=== PATIENT | male | born 1960 | race Hispanic/Latino ===

== ENCOUNTER 2022-05-08 18:45 | Emergency (ER) | payer OTHER ==
[~2022-05-08] VITALS: Ht 170.2 cm; Wt 77.1 kg
[2022-05-08] MEDS ORDERED: ACETAMINOPHEN-1 EAC4 PO (21:22)
[2022-05-08] MEDS ORDERED: ACETAMINOPHEN/CODEINE 300MG - 30MG TAB PO ONE (21:30)
[2022-05-08 22:27] VITALS: BP 129/71
== END 2022-05-08 21:40 | disposition home or self-care (01) ==
LOC: ER 18:53
DX: R33.9 Retention of urine, unspecified (principal); R10.30 Lower abdominal pain, unspecified; I10 Essential (primary) hypertension
CPT/HCPCS: 51700; 99284